=== PATIENT | male | born 1935 | race Caucasian/White ===

== ENCOUNTER → 2021-09-11 | Outpatient (CLI) | payer MEDICARE, OTHER | LOC: HEART 5 15:15 | DX: R42 Dizziness and giddiness (principal); I44.1 Atrioventricular block, second degree ==

== ENCOUNTER 2021-10-06 11:10 | Emergency (ER) | payer MEDICARE, OTHER ==
[2021-10-06] MEDS ORDERED: BACTROBAN OINT22 GM EXT (13:02)
== END 2021-10-06 13:13 | disposition home or self-care (01) ==
LOC: ER1 11:10
DX: S63.284A Dislocation of proximal interphalangeal joint of right ring finger, initial encounter (principal); S00.83XA Contusion of other part of head, initial encounter; S00.31XA Abrasion of nose, initial encounter; Z23 Encounter for immunization; I10 Essential (primary) hypertension; W01.0XXA Fall on same level from slipping, tripping and stumbling without subsequent striking against object, initial encounter
CPT/HCPCS: 26770; 70450; 73130; 90471; 90714; 99284

== ENCOUNTER 2021-12-01 12:34 | Emergency (ER) | payer MEDICARE, OTHER ==
[~2021-12-01 12:34] MED LIST: BACTROBAN OINT22 GM EXT
[2021-12-01 14:04] LABS: HEMOGLOBIN 11.4 gm/dl (14.0-17.5); RED BLOOD COUNT 3.59 M/UL (4.20-5.50); WHITE BLOOD COUNT 6.8 K/UL (4.5-11.0)
[2021-12-04] MEDS ORDERED: CRESTOR10 MG PO (14:01)
[2021-12-04] MEDS ORDERED: COMBIVENT RESPIM4 GM INH (14:02)
[2021-12-04] MEDS ORDERED: NORVASC2.5 MG PO (14:03)
[2021-12-04] MEDS ORDERED: METFORMIN HCL500 MG PO (14:04)
[2021-12-04] MEDS ORDERED: METOPROLOL SUCC25 MG PO (14:04)
[2021-12-04] MEDS ORDERED: BENICAR HCT 401 EAC1 PO (14:05)
== END 2021-12-01 18:20 | disposition home or self-care (01) ==
LOC: ER1 12:34
PROVIDERS: Physician Assistant
DX: K40.30 Unilateral inguinal hernia, with obstruction, without gangrene, not specified as recurrent (principal); I10 Essential (primary) hypertension; Z87.891 Personal history of nicotine dependence; Z87.19 Personal history of other diseases of the digestive system
CPT/HCPCS: 80053; 83605; 85025; 85652; 86140; 96374; 99284; J2270

== ENCOUNTER → 2021-12-05 | Day surgery (SDC) | payer MEDICARE, OTHER ==
[~2021-12-05] MED LIST changes: +BENICAR HCT 401 EAC1 PO; +COMBIVENT RESPIM4 GM INH; +CRESTOR10 MG PO; +METFORMIN HCL500 MG PO; +METOPROLOL SUCC25 MG PO; +NORVASC2.5 MG PO
== END | disposition home or self-care (01) ==
LOC: OR 06:43
DX: K40.30 Unilateral inguinal hernia, with obstruction, without gangrene, not specified as recurrent (principal); I10 Essential (primary) hypertension; E78.5 Hyperlipidemia, unspecified; E11.9 Type 2 diabetes mellitus without complications; Z79.84 Long term (current) use of oral hypoglycemic drugs; Z79.899 Other long term (current) drug therapy; Z87.891 Personal history of nicotine dependence; Z20.822 Contact with and (suspected) exposure to COVID-19
CPT/HCPCS: 93005; C1781; J0690; J1100; J2001; J2270; J2370; J2405; J2704; J3010; J7030; J7120

== ENCOUNTER → 2022-02-06 | Day surgery (SDC) | payer MEDICARE, OTHER | END | disposition home or self-care (01) | LOC: OR 05:29 | DX: K91.872 Postprocedural seroma of a digestive system organ or structure following a digestive system procedure (principal); I10 Essential (primary) hypertension; E78.5 Hyperlipidemia, unspecified; E11.9 Type 2 diabetes mellitus without complications; Z79.82 Long term (current) use of aspirin; Z79.84 Long term (current) use of oral hypoglycemic drugs; Z79.899 Other long term (current) drug therapy; Z72.89 Other problems related to lifestyle; Z87.891 Personal history of nicotine dependence | CPT/HCPCS: C1781; J0690; J1100; J1885; J2001; J2370; J2405; J2704; J2710; J3010 ==